=== PATIENT | male | born 1935 | race Caucasian/White ===

== ENCOUNTER 2023-07-10 09:40 | Day surgery (SDC) | payer MEDICARE ==
[2023-07-07 11:37] VITALS: BMI 20.9
[2023-07-10 10:50] LABS: #Basophils 0.07 10x3/uL (0.0-0.2); %Basophils 0.7 % (0.0-1.0); %Eosinophils 1.4 % (0.0-10.0); %Monocytes 9.5 % (0.0-10.0); Hemoglobin 12.2 g/dL (14.0-18.0); Mean Corpuscular HGB CONC 32.1 g/dL (32.0-36.0); Mean Corpuscular Hemoglobin 27.2 pg (27.0-31.0); Mean Corpuscular Volume 84.6 fL (78.0-98.0); Mean Platelet Volume 11.1 fL (7.4-10.4); Platelet Count 296 10x3/uL (130-400); RBC Distribution Width 16.9 % (11.5-14.5); Red Blood Cell (RBC) Count 4.49 mill/uL (4.70-6.10)
[2023-07-10 11:08] LABS: INR-International Normal Ratio 1.3; PTT 30.5 sec (22.9-36.1); Prothrombin Time 16.2 sec (12.0-14.7)
[2023-07-10 11:22] LABS: Anion Gap 16 mmol/L (10-20); BUN (Urea Nitrogen) 31 mg/dL (8.4-25.7); Calc. Creatinine Clearance 48 mL/min (70-130); Calcium 9.6 mg/dL (7.8-10.44); Carbon Dioxide 25 mmol/L (23-31); Chloride 105 mmol/L (98-107); Estimated GFR 65; Glucose 87 mg/dL (83-110); Potassium 3.9 mmol/L (3.5-5.1); Sodium 142 mmol/L (136-145)
[2023-07-10] MEDS ORDERED: PROPOFOL 200 MG/20 ML VIAL ONE (11:58)
[2023-07-10] MEDS ORDERED: Lidocaine 1% PF 5 ML VIAL ONE (11:58)
[2023-07-10] MEDS ORDERED: ePHEDrine Sulfate 50 MG/10 ML VIAL ONE (12:32)
== END 2023-07-10 13:15 | disposition home or self-care (01) ==
LOC: SDC 09:40
PROVIDERS: ATTEND Internal Medicine Cardiovascular Disease
PROC: 5A2204Z Restoration of Cardiac Rhythm, Single (ICD-10-PCS; principal; 2023-07-10)
DX: I48.19 Other persistent atrial fibrillation (principal); I11.0 Hypertensive heart disease with heart failure; I50.30 Unspecified diastolic (congestive) heart failure; E78.00 Pure hypercholesterolemia, unspecified; I87.2 Venous insufficiency (chronic) (peripheral); R07.89 Other chest pain; Z79.01 Long term (current) use of anticoagulants; Z79.82 Long term (current) use of aspirin; Z79.899 Other long term (current) drug therapy; Z92.89 Personal history of other medical treatment
CPT/HCPCS: 80048; 85025; 85610; 85730; 92960; 93005; 93010; J2704

== ENCOUNTER 2024-02-12 10:46 | Outpatient (CLI) | payer MEDICARE ==
[2024-02-12 12:55] LABS: #Basophils 0.08 10x3/uL (0.0-0.2); %Eosinophils 2.4 % (0.0-10.0); %Lymphocytes 20.8 % (21.0-51.0); %Monocytes 8.8 % (0.0-10.0); %Neutrophils 66.6 % (42.0-75.0); Hematocrit 36.7 % (42.0-52.0); Hemoglobin 11.5 g/dL (14.0-18.0); Mean Corpuscular HGB CONC 31.3 g/dL (32.0-36.0); Mean Corpuscular Hemoglobin 27.5 pg (27.0-31.0); Mean Corpuscular Volume 87.8 fL (78.0-98.0); Mean Platelet Volume 10.8 fL (7.4-10.4); Platelet Count 309 10x3/uL (130-400); RBC Distribution Width 17.4 % (11.5-14.5); Red Blood Cell (RBC) Count 4.18 mill/uL (4.70-6.10)
[2024-02-12 13:21] LABS: Anion Gap 14 mmol/L (10-20); BUN (Urea Nitrogen) 33 mg/dL (8.4-25.7); Calc. Creatinine Clearance 0 mL/min (70-130); Calcium 9.3 mg/dL (7.8-10.44); Carbon Dioxide 24 mmol/L (23-31); Chloride 105 mmol/L (98-107); Estimated GFR 82; Glucose 88 mg/dL (83-110); Potassium 4.4 mmol/L (3.5-5.1); Sodium 139 mmol/L (136-145)
[2024-02-12 13:55] LABS: PTT 34.8 sec (22.9-36.1)
[2024-02-12 13:56] LABS: INR-International Normal Ratio 1.2; Prothrombin Time 15.3 sec (12.0-14.7)
== END 2024-02-12 10:47 | disposition home or self-care (01) ==
LOC: LABBT 10:46
PROVIDERS: ATTEND Internal Medicine Cardiovascular Disease
DX: Z01.812 Encounter for preprocedural laboratory examination (principal); I48.19 Other persistent atrial fibrillation
CPT/HCPCS: 80048; 85025; 85610; 85730